=== PATIENT | female | born 1960 | race Caucasian/White ===

== ENCOUNTER 2016-08-02 00:48 | Emergency (ER) | payer OTHER ==
[~2016-08-02] VITALS: Ht 165.1 cm; Wt 72.7 kg
[2016-08-02 00:53] VITALS: BP 136/89; PULSE 67; RESP 25; O2SAT 98
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
[2016-08-02 02:02] VITALS: BP 127/82; PULSE 83; RESP 16; O2SAT 98
[2016-08-02] MEDS ORDERED: _HYDROcodone/APAP 5-325 mg Tablet PO PRN (02:05)
[2016-08-02] MEDS ORDERED: HYDROcodone-APAP 5-325 mg Tablet PO ONE (02:05)
[2016-08-02] MEDS ORDERED: IBUP-1827 PO (02:06)
--- NOTE | 2016-08-02 09:02 | DRSVH ---
PROCEDURE: X-RAY CHEST ONE VIEW, PORTABLE ([id number]) INDICATIONS: fall TECHNIQUE: One view of the chest was acquired. COMPARISON: None. FINDINGS: Surgical changes and devices: None. Lungs and pleura: No pleural effusions or pneumothorax. Lungs are clear. Mediastinum: Mediastinal contours appear normal. Heart size is normal. Bones and chest wall: No suspicious bony lesions. Overlying soft tissues appear unremarkable. IMPRESSION: No acute cardiopulmonary disease process. Dictated by: Betzy Zaldivar MD, PhD on 08/02/2016 at 9:00 Approved by: Betzy Zaldivar MD, PhD on 08/02/2016 at 9:00
--- NOTE | 2016-08-02 09:09 | DRSVH ---
PROCEDURE: X-RAY RIGHT SHOULDER, MINIMUM TWO VIEWS ([id number]) INDICATIONS: fall TECHNIQUE: 3views of the shoulder were acquired. COMPARISON: None. FINDINGS: Bones: No fractures or dislocations. No suspicious bony lesions. Visualized ribs appear intact. Ro tator cuff calcific tendinitis noted. Soft tissues: No suspicious soft tissue calcifications. IMPRESSION: No fracture. No acute osseous lesion. If symptoms and/or clinical suspicion for patholog y persists, further assessment with repeat radiographs or advanced imaging (e.g. CT, MRI or bone scan ) may be helpful for further assessment. Dictated by: Betzy Zaldivar MD, PhD on 08/02/2016 at 9:06 Approved by: Betzy Zaldivar MD, PhD on 08/02/2016 at 9:07
== END 2016-08-02 02:27 | disposition home or self-care (01) ==
LOC: SED 00:48
DX: S46.911A Strain of unspecified muscle, fascia and tendon at shoulder and upper arm level, right arm, initial encounter (principal); W18.39XA Other fall on same level, initial encounter; Y93.89 Activity, other specified; Y92.89 Other specified places as the place of occurrence of the external cause; Y99.8 Other external cause status; R51 Headache; Z91.040 Latex allergy status